=== PATIENT | female | born 1925 | race Two or more races ===

== ENCOUNTER → 2017-01-01 | Outpatient (CLI) | payer MEDICARE ==
[~2017-01-01] MED LIST: ASPI-496 PO; LEVO112T4 PO; METH500T97 PO; OMEP-110 PO; OXYC1TAB7 PO; POLY17PO5 PO; TRAM50TA2 PO
== END | disposition home or self-care (01) ==
LOC: RAD 12:14
PROVIDERS: ATTEND Neurological Surgery
DX: M48.061 Spinal stenosis, lumbar region without neurogenic claudication (principal); M51.04 Intervertebral disc disorders with myelopathy, thoracic region; M47.894 Other spondylosis, thoracic region; M43.8X4 Other specified deforming dorsopathies, thoracic region; M48.04 Spinal stenosis, thoracic region; R10.9 Unspecified abdominal pain
CPT/HCPCS: 72072; 72100